=== PATIENT | female | born 1995 | race Caucasian/White ===

== ENCOUNTER → 2017-07-24 | Outpatient (CLI) | payer OTHER ==
[~2017-07-24] MED LIST: IBUP800 PO; OXYACE5T PO; PROM25 PO; Verotin-Gr Cap1 EACH PO
[2017-07-25 14:28] LABS: Source Cervix
== END | disposition home or self-care (01) ==
LOC: LAB 16:41
PROVIDERS: Obstetrics & Gynecology
DX: Z12.4 Encounter for screening for malignant neoplasm of cervix (principal)
CPT/HCPCS: G0123

== ENCOUNTER 2019-07-28 16:57 | Emergency (ER) | payer OTHER ==
[~2019-07-28] VITALS: Ht 172.7 cm; Wt 81.7 kg
== END 2019-07-28 19:07 | disposition home or self-care (01) ==
LOC: ER 16:57
DX: S61.412A Laceration without foreign body of left hand, initial encounter (principal); V89.2XXA Person injured in unspecified motor-vehicle accident, traffic, initial encounter
CPT/HCPCS: 12001; 73130; 99283-25

== ENCOUNTER → 2023-11-05 | Outpatient (CLI) | payer OTHER ==
[2023-11-09 09:15] LABS: HPV HIGH RISK BY TMA Not Detected; HPV SOURCE Cervical/Vag
== END ==
LOC: LAB SHORT 12:41 → LAB 12:41
PROVIDERS: Obstetrics & Gynecology
DX: Z12.4 Encounter for screening for malignant neoplasm of cervix (principal)
CPT/HCPCS: 87624; G0123